=== PATIENT | male | born 1995 | race Caucasian/White ===

== ENCOUNTER 2024-07-16 14:36 | Outpatient (AMB) | payer MEDICAID, SELFPAY ==
--- NOTE | 2024-07-16 14:42 | AM.OFFWIN_ITS ---
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 Patient is concerned about possible ear infection. He states the pain is located mostly in the external ear canal. He denies any recent swimming but states that he has been shoveling snow outside a lot and might have gotten water stuck in his ear. He denies any otorrhea. He denies any fevers or chills. He denies any nasal congestion, rhinorrhea, or sore throat. He is otherwise feeling well. Review of Systems Const All systems reviewed & are unremarkable except as noted in HPI and below Reports no additional complaints Eyes Reports no additional complaints ENT Reports no additional complaints Card Reports no additional complaints Resp Reports no additional complaints GI Reports no additional complaints Reports no additional complaints Musc Reports no additional complaints Skin/Breast Reports system reviewed and no additional complaints, except as documented Neuro Reports no additional complaints Psych Reports no additional complaints Endo Reports no additional complaints Edward/Lymph Reports no additional complaints Aller/Immun Reports no additional complaints Physical Exam Vital Signs: Last Vital Signs Temp 98.8 F 07/16/24 14:43 Pulse 84 07/16/24 14:43 Resp 15 07/16/24 14:43 BP 110/78 07/16/24 14:43 Pulse Ox 96 07/16/24 14:43 Oxygen Delivery Method Room Air 07/16/24 14:43 BMI result Body Mass Index 25.7 Const Other: Vital signs reviewed. Constitutional: Non-toxic appearing. No acute distress. Well-developed and well-nourished. HEENT: Normocephalic and atraumatic. The left external auditory canal is erythematous and edematous. The left tympanic membrane is intact without evidence of rupture. The right external auditory canal and tympanic membrane are within normal limits. Skin: Warm and dry. No rashes or lesions noted. Neck: Full and painless range of motion. No cervical lymphadenopathy. Cardio: Regular rate. No lower extremity edema. Pulmonary: No respiratory distress. No accessory muscle usage. Musculoskeletal: Normal range of motion in joints throughout the body. No deformity or other signs of injury. Neuro: Alert and oriented x4. Cranial nerves 2-12 grossly intact. No focal deficits appreciated. Psych: Normal mood and affect. Assessment & Plan Assessment & Plan (1) Otitis externa: Code(s): H60.90 - Unspecified otitis externa, unspecified ear Qualifiers: Otitis externa type: swimmer's ear Chronicity: acute Laterality: left Qualified Code(s): H60.332 - Swimmer's ear, left ear Plan: This is a 28-year-old male who presented to the walk-in clinic complaining of left ear pain. On physical examination, the left external auditory canal is erythematous and edematous in the left tympanic membrane is intact without evidence of rupture. History and physical most consistent with otitis externa. Patient was given a prescription for neomycin/polymyxin/hydrocortisone ear drops. He was advised to proceed directly to the emergency room if he were to develop any otorrhea, hearing loss, or worsening pain. Patient verbalizes understanding and he is in agreement with the plan. Medications: New rpzjsbym-urgpuoybj-GY 3.5-10,000-1 mg/mL-unit/mL-% 4 drps otic (ear) left Q8H 10 mL 0RF 10 days Coding Level of Care Code New Pt Level 3 (30361) Diagnoses Acute swimmer's ear of left side H60.332 Otitis externa type: swimmer's ear Chronicity: acute Laterality: left
[2024-07-16 14:43] VITALS: BP 110/78; PULSE 84; RESP 15; TEMP 37.1; O2SAT 96; BMI 25.7
--- OUTSIDE RECORDS SUMMARY | 2024-07-16 14:54 | XMS_ITS | Clinical Summary ---
Author Organization [employer] Address [address] [facility] [address] [place] [address] Care Team Providers Care Security Agent Name Role Phone Unavailable Primary Care Provider Unavailabl e Encounters Date Type Department Care Team Description 06/09/2024 Telephone [facility] [address] [place] [address] Jovani Stewart MD New patient appt. from Last 3 Months Social History Tobacco Use Types Packs/Day Years Used Date Smoking Tobacco: Never Assessed Sex and Gender Information Value Date Recorded Sex Assigned at Male 11/21/2023 10:42 AM EDT Legal Sex Male 10:42 AM EDT Gender Identity Male 11/21/2023 10:42 AM EDT Sexual Orientation Not on file Plan of Treatment Health Maintenance Due Date Last Done Comments Depression Screening 1996 HIV Screening 1996 SDOH Screening 1996 Alcohol/Substance Use Screening 2008 Tobacco Screening 2008 Family Planning (PISQ) 11/13/2011 Hepatitis C Screening 2014 DTaP/Tdap/Td Vaccines (1 - Tdap) 11/13/2015 Hepatitis B Vaccines (1 of 3 - 19+ 3-dose series) 11/13/2015 COVID-19 Vaccine ( - 2023-2 5 season) 2024 Influenza Vaccine (#1) 2024 Zoster Vaccines (1 of 2) 2046 RSV Patients and Pa tients Aged 60 years or older (1 - 1-dose 75+ series) 11/13/2071 HIB Vaccines Aged Out No longer eligi ble based on patient's age to complete this topic HPV Vaccines Aged Out No longer eligi ble based on patient's age to complete this topic Hepatitis A Vaccines Aged Out No long er eligible based on patient's age to complete this topic IPV Vaccines Aged Out No longer eligi ble based on patient's age to complete this topic Meningococcal Vaccine Aged Out No sharmila marjan eligible based on patient's age to complete this topic Pneumococcal Vaccine: Pediat rics (0 to 5 Years) and At-Risk Patients (6 to 49) Years) Aged Out No longer eligible b ased on patient's age to complete this topic RSV under 20 months Aged Out No longe r eligible based on patient's age to complete this topic Rotavirus Vaccines Aged Out No longer eligible based on patient's age to complete this topic [place] [address] [place] [address] C3
--- OUTSIDE RECORDS SUMMARY | 2024-07-16 14:54 | XMS_ITS | Encounter Summary ---
Author Organization [facility] Address [address] [place] [phone] Phone Care Team Providers Care Clerk Analyst Name Role Phone Unavailable Primary Care Provider Unavailabl e Encounter Details Date Type Department Care Team (Late st Contact Info) Description 02/15/2013 Documentation [facility] Family Medicine [facility] [place] [address] Family Medicine, Physician [facility] [place] [address] Social History Tobacco Use Types Packs/Day Years Used Date Smoking Tobacco: Never Assessed Sex and Gender Information Value Date Recorded Sex Assigned at Not on file Legal Sex Male 4:55 PM EDT Gender Identity Not on file Sexual Orientation Not on file documented as of this encounter Plan of Treatment Not on file documented as of this encounter Visit Diagnoses Not on filedocumented in this encounter
--- OUTSIDE RECORDS SUMMARY | 2024-07-16 14:54 | XMS_ITS | Encounter Summary ---
Author Organization [facility] Address [address] [place] [phone] Phone Care Team Providers Care Sinker Puller Name Role Phone Unavailable Primary Care Provider Unavailabl e Encounter Details Date Type Department Care Team (Late st Contact Info) Description 02/27/2015 Documentation [facility] Family [facility] [place] [address] Family Medicine, Phys[place] [facility] [place] [address] Social History Tobacco Use Types Packs/Day Years [...]
--- OUTSIDE RECORDS SUMMARY | 2024-07-16 14:54 | XMS_ITS | Clinical Summary ---
Author Organization [facility] Address [address] [place] [phone] Phone Care Team Providers Care Saturator Name Role Phone Unavailable Primary Care Provider Unavailabl e Allergies No known active allergies Medications No known medications Active Problems Problem Noted Date Diagnosed Date Seasonal allergic rhinitis 08/10/2009 Immunizations Immunization Administration Dates Next Due DTaP 5 11/17/2000, 8,05/13/1997,03/14,01/17/1997 H1N1 03/22/2009 HPV, Quadrivalent 06/17/2012,02/05/2012,12/03/19 12 Hep A, ped/adol 02/21/2014,11/02/2010 Hep B, ped/adol 05/13/1997,1996,1996 Hib (PRP-T) 11/14/1997, 7,03/14/1997,01/17 IPV 11/14/1997,03/04/1997,01/17/1997 Influenza Split 02/05/2012 Influenza, injectable, quadr ivalent, preservative free 04/01/2018,03/26/2017,03/01/2016 Influenza, injectable, trivalent 05/11/2009 Influenza, intranasal, quadrivalent 02/20/2015,0 02/21/2014,02/16/2013 Influenza, intranasal, trivalent 03/12/2011,03/27 MMR 11/17/2000,02/17/1998 Meningococcal Conj (Menactra) MCV4P 02/21/2014,0 07/28/2008 OPV 11/17/2000 Td (adult) (MBL), 2 Lf tetan us toxoid, PF, adsorbed 12/04/2018 Tdap 07/28/2008 Varicella 11/03/2007,11/14/1997 Family History Medical History Relation Name Comments No Known Problems Brother shahnaz No Known Problems Father audi Hypertension Mother diya Heart disease (Premature) Other 1 Hyperlipidemia Other 1 Obesity Other 1 Relation Name Status Comments Brother shahnaz Alive Brother: Alive and well Father audi Alive Father: Alive a nd well Mother diya Alive Mother: Hyperte nsion Other 1 Other 2 Family history of Obesity, Family history of *Heart Disease, Family history of Hyperlipidemia, Family history of Cancer, unknown Paternal Grandfather Paterna l grandfather: Cancer - Paternal Grandmother Alive Paterna l grandmother: Alive and well Social History Tobacco Use Types Packs/Day Years Used Date Smoking Tobacco: Former Smokeless Tobacco: Current Comments:Never smoker Alcohol Use Standard Drinks/Week Comments Yes 0 (1 standard drink = 0.6 oz pur e alcohol) occ Hunger/Food Answer Date Recorded No 06/13/2018 Stable Housing Answer Date Recorded 0 06/13/2018 Transportation Concerns Answer Date Rec orded No 06/13/2018 Hazards in Home Answer Date Recorded No 06/13/2018 Financing Utilities Answer Date Recorde d No 06/13/2018 Safety at Home Answer Date Recorded No 06/13/2018 Outside Support Answer Date Recorded No 06/13/2018 Understanding Health Concerns Answer Da te Recorded No 06/13/2018 Financing Health Concerns Answer Date R ecorded No 06/13/2018 Missing School or Work Answer Date Kota rded No 06/13/2018 Sex and Gender Information Value Date Recorded Sex Assigned at Not on file Legal Sex Male 4:55 PM EDT Gender Identity Not on file Sexual Orientation Not on file Last Filed Vital Signs Vital Sign Reading Time Taken Comments Blood Pressure 123/67 04/01/2018 3:35 PM EST Pulse 93 04/01/2018 3:35 PM EST Temperature 36.7 ??C (98.1 ??F) 04/01/2018 3:35 PM ES T Respiratory Rate - - Oxygen Saturation - - Inhaled Oxygen Concentration - - Weight 72.6 kg (160 lb) 04/01/2018 3:35 PM EST Height 179.7 cm (5' 10.75 ) 04/01/2018 3:[address] Body Mass Index 22.47 04/01/2018 3:35 PM EST Plan of Treatment Health Maintenance Due Date Last Done Comments Influenza Vaccines (#1) 2023 04/01/20 18, 03/26/2017, 03/01/2016, Additional history exists COVID-19 Vaccine (2023-25 season) 2024 DTaP,Tdap,and Td Vaccines (8 - Td or Tdap) 12/04/2028 12/04/2018, 07/28/2008, 11/17/2000, Additional history exists Hepatitis B Vaccines Completed 05/13/1997, 1996, 1996 HIB Vaccines Completed 11/14/1997, 04/25, 03/14/1997, Additional history exists IPV Vaccines Completed 11/17/2000, 10/25, 03/04/1997, Additional history exists MMR Vaccines Completed 11/17/2000, 02/17/1998 Varicella Vaccines Completed 11/03/2007, 11/14/1997 HPV Vaccines Completed 06/17/2012, 01/24, 12/03/2011 Hepatitis A Vaccines Completed 02/21/2014, 11/03/19 11 Meningococcal Vaccine Completed 02/21/2014, 009 Men B Vaccine Aged Out No longer elig ible based on patient's age to complete this topic Pneumococcal Vaccine Aged Out No long er eligible based on patient's age to complete this topic Insurance [facility] NON PCC
--- OUTSIDE RECORDS SUMMARY | 2024-07-16 14:55 | XMS_ITS | Encounter Summary ---
Author Organization [facility] Address [address] [place] [phone] Phone Care Team Providers Care Emergency Department Clinician Name Role Phone Unavailable Primary Care Provider Unavailabl e Encounter Details Date Type Department Care Team (Late st Contact Info) Description 01/09/2017 Conversion Encounter [facility] - [address] [phone] Social History Tobacco Use Types Packs/Day Years Used Date Smoking Tobacco: Never Comments:Never smoker Sex and Gender Information Value Date Recorded Sex Assigned at Not on file Legal Sex Male 4:55 PM EDT Gender Identity Not on file Sexual Orientation Not on file documented as of this encounter Plan of Treatment Not on file documented as of this encounter Visit Diagnoses Not on filedocumented in this encounter
== END 2024-07-16 15:12 | disposition home or self-care (01) ==
PROVIDERS: PCP Pediatrics; Visit Provider Physician Assistant Medical
DX: H60.332 Swimmer's ear, left ear (principal)

== ENCOUNTER → 2024-07-16 14:36 | Outpatient (BNVA) | payer SELFPAY | PROVIDERS: PCP Pediatrics | DX: H60.332 Swimmer's ear, left ear (principal) | CPT/HCPCS: 99202 ==

== ENCOUNTER 2024-08-10 12:20 | Outpatient (REF) | payer OTHER, SELFPAY ==
[2024-08-10 16:18] LABS: MANUAL DIFF FLAG NO
[2024-08-10 16:29] LABS: Appearance Urine Turbid; Color Urine Yellow; Glucose Urine UA Negative (Negative); Leukocyte Esterase Urine Negative (Negative); Nitrite Urine Negative (Negative); PH 5.5 (5.0-9.0); Specific Gravity - Urine >= 1.030 (1.005-1.025); Urine Blood Negative (Negative); Urine Ketones Trace mg/dL (Negative); Urine Protein Negative (Neg-Trace)
[2024-08-10 17:11] LABS: Amphetamine Screen Urine Not Detected (Not Detect); Barbiturates, Urine Not Detected (Not Detect); Benzodiazepines Screen Urine Not Detected (Not Detect); Buprenorphine Scr Not Detected (Not Detect); Cannabinoid Screen Urine Not Detected (Not Detect); Cocaine Screen Urine Not Detected (Not Detect); Fentanyl, urine Not Detected (Not Detect); Methadone Screen, Urine Not Detected (Not Detect); Opiate Screen Urine Not Detected (Not Detect); Oxycodone Screen Urine Not Detected (Not Detect); Phencyclidine Screen Urine Not Detected (Not Detect)
[2024-08-10 17:29] LABS: Alanine Aminotransferase 29 U/L (0-40); Alkaline Phosphatase 52 U/L (39-117); Anion Gap 14 (12-20); Aspartate Amino Transferase 28 U/L (5-37); Basophils Percent Auto 0.7 % (0-2); Bilirubin Total 0.3 mg/dL (0.0-1.0); Blood Urea Nitrogen 22 mg/dL (9-16); Calcium 9.9 mg/dL (8.4-10.2); Carbon Dioxide 24 mmol/L (22-29); Chloride 108 mmol/L (96-108); Cholesterol 189 mg/dL (<200); Eosinophils Absolute Auto 0.1 X10*3/uL (0.0-0.4); Eosinophils Percent Auto 1.9 % (0-4); Estimated Glomerular Filt Rate > 60; Ethanol < 10 mg/dL; Glucose Fasting 75 mg/dL (60-99); HDL Cholesterol 48 mg/dL (>40); Hematocrit 43.5 % (42.0-52.0); Hemoglobin 15.1 g/dl (14.0-18.0); Imm Gran Abs Auto 0.02 X10*3/uL (0.00-0.03); Imm Gran Pct Auto 0.4 % (0.0-0.4); LDL Cholesterol Calculated 116 mg/dL (<100); Lymphocytes Absolute Auto 1.7 X10*3/uL (1.2-4.9); Mean Corpuscular HGB Conc 34.7 g/dl (31.0-36.0); Mean Corpuscular Hemoglobin 29.4 pg (27.0-33.0); Mean Corpuscular Volume 84.6 fL (80.0-98.0); Mean Platelet Volume 9.5 fL (9.4-12.4); Monocytes Absolute Auto 0.6 X10*3/uL (0.1-1.2); Monocytes Percent Auto 10.8 % (2-11); Neutrophils Percent Auto 55.2 % (45-73); Platelet Count 258 X10*3/uL (160-400); Red Blood Count 5.14 X10*6/uL (4.60-5.80); Red Cell Distribution Width 12.2 % (11.0-16.0); Sodium 142 mmol/L (135-145); Total Protein 8.6 g/dL (6.5-8.0); Triglycerides 125 mg/dL (<150); White Blood Count 5.4 X10*3/uL (4.8-10.8)
[2024-08-10 17:35] LABS: Vitamin B12 343 pg/mL (200-900)
[2024-08-10 17:44] LABS: TSH reflex Free T4 1.29 uIU/mL (0.32-4.0)
[2024-08-11 08:31] LABS: HBS Num1 0.53 mIU/mL (0-7.99); HIV AB/AG Nonreactive (Nonreactive); HIV Num 1 0.07 S/CO (0.00-0.99); ~HepC Num1 0.11 S/CO (0.00-0.79); ~Hepatitis B Surface Antibody NONREACTIVE (Nonreactive); ~Hepatitis C Antibody Nonreactive (Nonreactive)
[2024-08-11 08:50] LABS: Syphilis Screen Nonreactive (Nonreactive)
[2024-08-11 22:48] LABS: Herpes Simplex Type 1 IgG <0.90 index; Herpes Simplex Type 2 IgG <0.90 index
[2024-08-14 16:09] LABS: Vitamin D 25-OH, D2 <4 ng/mL; Vitamin D 25-OH, D3 18 ng/mL; Vitamin D 25-OH, Total 18 ng/mL (30-100)
== END 2024-08-10 12:21 | disposition home or self-care (01) ==
LOC: HO.HMGCLDS 12:20
PROVIDERS: PCP Internal Medicine; Visit Provider Internal Medicine
DX: Z00.01 Encounter for general adult medical examination with abnormal findings (principal); F10.11 Alcohol abuse, in remission; L28.2 Other prurigo; Z11.3 Encounter for screening for infections with a predominantly sexual mode of transmission
CPT/HCPCS: 80053; 80061; 80307; 81003; 82306; 82607; 84443; 85025; 86695; 86696; 86706; 86780; 86803; 87389; 96127; 99212; 99385

== ENCOUNTER 2024-08-10 12:20 | Outpatient (AMB) | payer OTHER, SELFPAY ==
[2024-08-10 12:25] VITALS: BP 122/82; PULSE 87; TEMP 36.8; O2SAT 97; BMI 26.3
--- NOTE | 2024-08-10 12:25 | A.OFFPC_ITS ---
Vital Signs 08/10/24 12:25 Height 5 ft 11 in Weight 188 lb 4 oz BMI 26.3 BP 122/82 Blood Pressure Location Rt brachial Position Sitting Pulse 87 Pulse Source Pulse Oximeter Temp 98.2 F Temp Source Oral Pulse Oximetry (%) 97 Oxygen Delivery Method Room Air Intake Visit Reasons: Est Care, requesting PE Allergies No Known Allergies Allergy (Unverified 07/16/24 14:45) Medication List - Last Reconciled 08/10/24 by Dorita Tellez MD No Known Home Meds Tobacco use date assessed: 08/10/24 Dental Screening Dental Screen Date: 08/10/24 Did you have a dental visit in the last 12 months?: Yes Did you have a dental problem in the last 6 months where you did not have access to dental care?: No Was dental information given to patient?: Patient has dentist HPI Est Care, requesting PE HPI Details New patient visit History of alcohol use disorder and inquiry regarding a persistent skin lesion. - The patient is a 28-year-old male pres enting with concerns of alcohol monitoring due to a history of binge drinking and compliance with a probationary alcohol education program. - Binge drinking pattern began post-rela tionship breakup two and a half years ago, evolving to daily consumption of at least a pint of whiskey. - Reports cessation of alcohol intake be fore the most recent New Year. - Associated substance use history inclu adama episodic cocaine use linked with alcohol consumption, and break-up with significant other - Participates in the [facility] alcohol program under probationary requirements. - Reports a chronic skin lesion on the r ight leg, originating from a traumatic event approximately two years ago. The lesion remains itchy and unresolved. Health Maintenance - Discussed compliance with probationary alcohol education program with ongoing monitoring. - Recommended blood test for alcohol lev el as part of the monitoring process. - Advised initiation of topical treatmen t using hydrocortisone cream for chronic skin lesion. - Reviewed patient's last tetanus booste r from 2008, confirming current status for vaccination. 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 - Holds a bachelor's degree in graphic a rts with an interest in pursuing nursing. - Lives with and cares for a large Mayi siegel. - Previously engaged in binge drinking a nd drug use post-breakup. Problem List - Alcohol Use Disorder, in remission - Chronic Unhealed Skin Lesion on Right Leg - History of Cocaine Use, associated wit h alcohol consumption, and emotional turmoil [facility] En[facility] Patient Instructions - Apply prescribed hydrocortisone cream at night to the affected skin area for two weeks or until symptoms improve, reassess if symptoms recur. - Comply with alcohol monitoring require ments as part of probationary program, abstain from alcohol consumption. - Fast for 10 hours before alcohol level blood test, attend lab next door for testing without needing an appointment. - Keep communication open with mental [facility] provider and attend scheduled sessions. - Contact clinic with any additional con cerns or symptoms. Review of Systems - General: No fever no chills - Neurological: No headaches no dizzin ess - Ear nose throat: No sore throat no hearing difficulty no ear pain - Cardiovascular: No syncope, no chest pain, no palpitations - Gastrointestinal: No nausea vomiting or diarrhea - Endocrine: No polyuria polydipsia no heat intolerance - Genitourinary: No dysuria - Skin: No new complaints Physical Exam General: Cooperative, healthy appearing, comfortable, no acute distress Orientation: Patient oriented x3 Limitations: None Head: Normal to inspection Ears: Within normal limit visually Nose: Normal external nose present Face and sinus: Normal facial exam Eyes: Appearance normal, extraocular movement intact pupils reactive Neck: Normal visual inspection and supple Respiratory: Normal respiratory effort and able to speak in complete sentences. Clear to auscultation, no stridor Cardiovascular: S1 and S2 GI: Normal to inspection. Soft to palpation and nontender Skin: Turgor normal, no acute findings, persistent itchy rash on the right leg anteriorly Neuro: Patient oriented x3, motor sensory intact, balance intact, tandem pass Extremities: Normal to inspection [facility] Social History Housing: House Patient Tobacco Use Status: Never used Tobacco e-Cigarette/Vaping Use: Currently Using service: No Current occupational status: employed Cognitive needs: No Hearing needs: No Vision needs: No Questionnaire PHQ-9 Over the last 2 weeks, how often have you been bothered by any of the following problems? 1. Little interest or pleasure in doing things: more than half the days 2. Feeling down, depressed, or hopeless: several days 3. Trouble falling or staying asleep, or sleeping too much: several days 4. Feeling tired or having little energy: several days 5. Poor appetite or overeating: several days 6. Feeling bad about yourself - or that you are a failure or have let yourself or your family down: several days 7. Trouble concentrating on things, such as reading the newspaper or watching television: not at all 8. Moving or speaking so slowly that other people could have noticed. Or the opposite - being so fidgety or restless that you have been moving around a lot more than usual: not at all 9. Thoughts that you would be better off or of hurting yourself in some way: not at all Total score: 7 Depression Screening Interpretation: Negative Depression Screening Done: Yes 25715 - PHQ-9 Billing: Yes Source: Developed by Drs. Abilio Madison, Darlene Solano, Pedro Macdonald and colleagues, with an educational bhumi from [employer]. Thrive Questionnaire Date Thrive assessed: 08/05/24 I am a: Patient What is your living situation today?: I have a steady place to live Within the past 12 months, did the food you bought not last and you didn't have the money to get more?: Sometimes True Within the past 12 months, did you worry whether your food would run out before you got money to buy more?: Sometimes True Do you have trouble paying for medicines?: No Do you have trouble getting transportation to medical appointments?: No Do you have trouble paying your heating and electricity bill?: Yes Do you have trouble taking care of your child, family member or friend?: I choose not to answer this question Do you have trouble with day-to-day activities such as bathing, preparing meals, shopping, managing finances, etc.?: Yes Are you currently unemployed and looking for a job?: I choose not to answer this question Are you interested in more education?: Yes Please select the resources that you would like help with: Job search/training and Education Currently or been in a relationship where the following occur: No concerns reported THRIVE Score: 3 AUDIT C Alcohol Use Questionnaire (AUDIT-C) 1. How often do you have a drink containing alcohol?: Never 2. How many drinks containing alcohol do you have on a typical day when you are drinking?: 7 to 9 3. How often do you have six or more drinks on one occasion?: Never Total Score: 3 Score Reviewed/Action Taken: Yes SHANON-7 AMB Questionnaire SHANON-7 Date SHANON - 7 assessed: 08/10/24 Feeling nervous, anxious, or on edge: 1 = Several days Not being able to stop or control worryin = Several days Worrying too much about different things: 1 = Several days Trouble relaxin = Several days Being so restless that it is hard to sit still: 0 = Not at all Becoming easily annoyed or irritable: 0 = Not at all Feeling afraid as if something awful might happen: 1 = Several days Total SHANON-7 score (0-4 normal; 5-9 mild; 10-14 moderate; 15-21 severe): 5 Source: Developed by Drs. Abilio Madison, Darlene Solano, Pedro Macdonald and colleagues, with an educational bhumi from [employer]. SHANON-7 Assessment Billing SHANON-7 Assessment Tool: SHANON-7 Assessment 22463 Physical exam (Primary Care) Vital Signs: Last Vital Signs Temp 98.2 F 08/10/24 12:25 Pulse 87 08/10/24 12:25 BP 122/82 08/10/24 12:25 Pulse Ox 97 08/10/24 12:25 Oxygen Delivery Method Room Air 08/10/24 12:25 BMI result Body Mass Index 26.3 Tobacco/Smoking Status: Tobacco use Status Tobacco use date assessed 08/10/24 08/10/24 12:31 Patient Tobacco Use Status Never used Tobacco 08/10/24 12:31 e-Cigarette/Vaping Use Currently Using 08/10/24 12:31 PHQ-9: PHQ-9 Score PHQ-9: Total score 7 08/10/24 13:06 Depression Screening Interpretation: Negative Thrive Assessment: Date of Thrive Assessment Date Thrive assessed 08/05/24 08/10/24 12:31 Currently or been in a relationship where the following occur: No concerns reported Coding Level of Care Code Est Pt Level 3 (26658) New Pt Prev Care 18-39yr(96461 Diagnoses Encounter for general adult medical examination with abnormal findings Z00.01 History of alcohol abuse F10.11 Screen for STD (sexually transmitted disease) Z11.3 Pruritic rash L28.2 Additional Codes SHANON-7 Assessment Billing - SHANON-7 Assessment Tool: SHANON-7 Assessment 11624 ([id number]) PHQ-9 - 19499 - PHQ-9 Billing: Yes ([id number]) Assessment & Plan Assessment & Plan (1) Encounter for general adult medical examination with abnormal findings: Code(s): Z00.01 - Encounter for general adult medical examination with abnormal findings Category: Medical (2) History of alcohol abuse: Code(s): F10.11 - Alcohol abuse, in remission Category: Medical (3) Screen for STD (sexually transmitted disease): Code(s): Z11.3 - Encounter for screening for infections with a predominantly sexual mode of transmission Category: Medical (4) Pruritic rash: Code(s): L28.2 - Other prurigo Category: Medical Plan New patient visit History of alcohol use disorder and inquiry regarding a persistent skin lesion. - The patient is a 28-year-old male presenting with concerns of alcohol monitoring due to a history of binge drinking and compliance with a probationary alcohol education program. - Binge drinking pattern began post-relationship breakup two and a half years ago, evolving to daily consumption of at least a pint of whiskey. - Reports cessation of alcohol intake before the most recent New Year. - Associated substance use history includes episodic cocaine use linked with alcohol consumption, and break-up with significant other - Participates in the [facility] alcohol program under probationary requirements. - Reports a chronic skin lesion on the right leg, originating from a traumatic event approximately two years ago. The lesion remains itchy and unresolved. Health Maintenance - Discussed compliance with probationary alcohol education program with ongoing monitoring. - Recommended blood test for alcohol level as part of the monitoring process. - Advised initiation of topical treatment using hydrocortisone cream for chronic skin lesion. - Reviewed patient's last tetanus booster from 2008, confirming current status for vaccination. 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 - Holds a bachelor's degree in [employer] with an interest in pursuing nursing. - Lives with and cares for a large [place]. - Previously engaged in binge drinking and drug use post-breakup. Problem List - Alcohol Use Disorder, in remission - Chronic Unhealed Skin Lesion on Right Leg - History of Cocaine Use, associated with alcohol consumption, and emotional turmoil - Probationary Alcohol Education Program Enrollment Patient Instructions - Apply prescribed hydrocortisone cream at night to the affected skin area for two weeks or until symptoms improve, reassess if symptoms recur. - Comply with alcohol monitoring requirements as part of probationary program, abstain from alcohol consumption. - Fast for 10 hours before alcohol level blood test, attend lab next door for testing without needing an appointment. - Keep communication open with mental health provider and attend scheduled sessions. - Contact clinic with any additional concerns or symptoms. - patient would like to be screened for STDs as well Orders: Orders Comprehensive [place]. Panel Fast Today F10.11 - Alcohol abuse, in remission, L28.2 - Other prurigo, Z00.01 - Encounter for general adult medical examination with abnormal findings, Z11.3 - Encounter for screening for infections with a predominantly sexual mode of transmission Ethanol Today F10.11 - Alcohol abuse, in remission, L28.2 - Other prurigo, Z00.01 - Encounter for general adult medical examination with abnormal findings, Z11.3 - Encounter for screening for infections with a predominantly sexual mode of transmission Herpes Simplex Virus Ab IgG Today F10.11 - Alcohol abuse, in remission, L28.2 - Other prurigo, Z00.01 - Encounter for general adult medical examination with a bnormal findings, Z11.3 - Encounter for screening for infections with a predominantly sexual mode of transmission Hepatitis C Antibody Today F10.11 - Alcohol abuse, in remission, L28.2 - Other prurigo, Z00.01 - Encounter for general adult medical examination with abnormal findings, Z11.3 - Encounter for screening for infections with a predominantly sexual mode of transmission Complete Blood Count Auto Diff Today F10.11 - Alcohol abuse, in remission, L28.2 - Other prurigo, Z00.01 - Encounter for general adult medical examination with abnormal findings, Z11.3 - Encounter for screening for infections with a predominantly sexual mode of transmission Lipid Panel Today F10.11 - Alcohol abuse, in remission, L28.2 - Other prurigo, Z00.01 - Encounter for general adult medical examination with abnormal findings, Z11.3 - Encounter for screening for infections with a predominantly sexual mode of transmission Vitamin D 25-OH (D2 and D3) Today F10.11 - Alcohol abuse, in remission, L28.2 - Other prurigo, Z00.01 - Encounter for general adult medical examination with abnormal findings, Z11.3 - Encounter for screening for infections with a predominantly sexual mode of transmission Vitamin B12 Today F10.11 - Alcohol abuse, in remission, L28.2 - Other prurigo, Z00.01 - Encounter for general adult medical examination with abnormal findings, Z11.3 - Encounter for screening for infections with a predominantly sexual mode of transmission UA CC w/rflx Micro + Cult Today F10.11 - Alcohol abuse, in remission, L28.2 - Other prurigo, Z00.01 - Encounter for general adult medical examination with abnormal findings, Z11.3 - Encounter for screening for infections with a predominantly sexual mode of transmission TSH reflex Free T4 Today F10.11 - Alcohol abuse, in remission, L28.2 - Other prurigo, Z00.01 - Encounter for general adult medical examination with abnormal findings, Z11.3 - Encounter for screening for infections with a predominantly sexual mode of transmission Drug Screen Urine Today F10.11 - Alcohol abuse, in remission, L28.2 - Other prurigo, Z00.01 - Encounter for general adult medical examination with abnormal findings, Z11.3 - Encounter for screening for infections with a predominantly sexual mode of transmission HIV Ab/Ag Today F10.11 - Alcohol abuse, in remission, L28.2 - Other prurigo, Z00.01 - Encounter for general adult medical examination with abnormal findings, Z11.3 - Encounter for screening for infections with a predominantly sexual mode of transmission Hepatitis B Surface Antibody Today F10.11 - Alcohol abuse, in remission, L28.2 - Other prurigo, Z00.01 - Encounter for general adult medical examination with abnormal findings, Z11.3 - Encounter for screening for infections with a predominantly sexual mode of transmission Syphilis Screen Today F10.11 - Alcohol abuse, in remission, L28.2 - Other prurigo, Z00.01 - Encounter for general adult medical examination with abnormal findings, Z11.3 - Encounter for screening for infections with a predominantly sexual mode of transmission Medications: New clobetasol 0.05% 1 appl topical BEDTIME 60 grams 0RF
== END 2024-08-10 13:02 | disposition home or self-care (01) ==
LOC: HO.HMCC 12:21
PROVIDERS: PCP Pediatrics; Visit Provider Internal Medicine
DX: Z00.01 Encounter for general adult medical examination with abnormal findings (principal); F10.11 Alcohol abuse, in remission; Z11.3 Encounter for screening for infections with a predominantly sexual mode of transmission; L28.2 Other prurigo

== ENCOUNTER 2025-02-05 13:57 | Emergency (ER) | payer OTHER, SELFPAY ==
--- NOTE | ~2025-02-05 | XR_ITS ---
CLINICAL HISTORY: pain, injury 4 view left wrist Comparison: None provided Findings: Bones intact. No dislocations. No significant loss of joint space, osteophyte, or erosions. No radiopaque foreign body. IMPRESSION: 1. No acute findings This document has been electronically signed by: Francisco Carrillo MD on 02/05/2025 14:49:38
--- NOTE | 2025-02-05 14:15 | ED_ITS ---
HPI - General Adult General Chief complaint: Wound/Laceration Stated complaint: hand PW at work Time Seen by Provider: 02/05/25 14:19 Source: patient Mode of arrival: ambulatory Limitations: no limitations History of Present Illness ED Provider: Jojo Hedrick PA-C HPI narrative: Patient is a 29 year old assigned male at with a history of alcohol abuse presenting to the emergency department today with a left wrist laceration. Patient states that he was using pruning sheers when he cut his left wrist / palm. Patient states that he had this injury while at work. Patient denies any other complaints at this time. Patient denies any numbness / tingling. Patient states that he does not know when his last tetanus shot was. Related Data Previous Rx's ?Medication ?Instructions ?Recorded clobetasol 0.05 % topical cream 1 appl topical BEDTIME #60 grams 08/10/24 amoxicillin 875 mg-potassium 1 tab PO BID 5 days #10 t abs 02/05/25 clavulanate 125 mg tablet Allergies Allergy/AdvReac Type Severity Reaction Status Date / Time No Known Allergies Allergy Verified 02/05/25 14:20 Review of Systems 2 Constitutional: Constitutional: Reports as per HPI Eyes: Eyes: Reports as per HPI ENT: Reports as per HPI Cardiovascular: Cardiovascular: Reports as per HPI Respiratory: Respiratory: Reports as per HPI Gastrointestinal: Gastrointestinal: Reports as per HPI Genitourinary: Genitourinary: Reports as per HPI Musculoskeletal: Musculoskeletal: Reports as per HPI Integumentary/Breasts: Skin/Breast: Reports as per HPI Neurologic: Reports as per HPI Psychiatric: Psychiatric: Reports as per HPI Endocrine: Endocrine: Reports as per HPI Hematologic/Lymphatic: Hematologic/Lymphatic: Reports as per HPI Allergic/Immunologic: Allergic/Immunologic: Reports as per HPI PMF Past Medical History Attestation statement: The following information was validated with the patient. Source: old records reviewed and nursing notes reviewed Social History Social History Housing: House Patient Tobacco Use Status: Never used Tobacco e-Cigarette/Vaping Use: Currently Using Advance Directives: No Advance Directives Information Provided: No Do you have a plan to hurt others: No Plan service: No Current occupational status: employed Cognitive needs: No Hearing needs: No Vision needs: No Physical Exam ED Vital Signs: Vital Signs - 24 hr 02/05/25 14:16 02/05/25 16:13 Temperature 98 F 98 F Pulse Rate 77 77 Respiratory Rate 18 18 Blood Pressure 126/60 126/60 Pulse Oximetry 98 98 Oxygen Delivery Method Room Air Room Air BMI result Body Mass Index 23.7 Const General: cooperative, no acute distress, alert and awake Nutritional Appearance: well nourished Orientation/consciousness: patient oriented x3 HENMT Head: Yes normal to inspection and Yes atraumatic Ears: hearing grossly normal bilaterally and external ears normal General nose exam: Normal external nose present, no nasal discharge noted and no epistaxis Face and sinus: Yes normal facial exam, No abrasion and No laceration Mouth: Normal oral and palatal mucosa present, no drooling and no muffled voice Eyes General: appearance normal, both eyes and all related structures Periorbital: periorbital findings normal Eyelids: Yes eyelids normal Conjunctivae: conjunctivae normal Pupils: Equal, round and reactive pupils present EOM: EOMs intact bilaterally Neck Neck: Yes normal visual inspection and Yes full ROM Resp Effort & Inspection: normal respiratory effort and able to speak in complete sentences Neuro General: patient oriented x3, moves all extremities and CN's II-XI intact bilaterally Cranial nerves: Yes Equal, round and reactive pupils present Cognition (Neuro): normal cognition Extrem General: Yes full ROM and Yes capillary refill normal Hand/finger images: 2 1. 1.5 cm Psych Appearance: grossly normal Mental Status: mental status grossly normal Affect: normal affect Attitude: cooperative Thought process: Normal thought process present Thought content: Normal thought content present Insight: Good insight present (Psych) Course Course Course Narrative: Rapid medical examination performed in triage by Jojo Hedrick PA-C. Patient is a 29 year old assigned male at presenting to the emergency department with a left hand laceration. Detailed physical exam and review of systems are deferred to the train starter. Imaging ordered. Patient placed back in the waiting room pending room availability and results. Medications Administered Discontinued Medications Generic Name Dose Route Start Last Admin Trade Name Freq PRN Reason Stop Dose Admin Diphtheria/Tetanus/Acell Pertussis 0.5 ml 02/05/25 14:18 02/05/25 15:19 Diphth,Pertus(Acell),Tet Adult 0.5 Ml Syringe IM 02/05/25 14:19 0.5 ml .ONCE ONE Administration Lidocaine HCl 10 ml 02/05/25 15:17 02/05/25 15:25 Lidocaine Hcl 1 % Mpf 5 Ml Vial SUBCUT 02/05/25 15:18 10 ml ONCE ONE Administration Procedures Laceration Left palm laceration: Site: hand Side (If applicable): left Size (cm): 1.5 Description: linear Depth: simple, single layer Local Anesthetic: lidocaine 1% Amount of anesthesia used (mL): 10 Pre-repair: wound explored, irrigated extensively and deep structures intact Skin layer closed with: other (proelene) Size (cm): 5-0 Number of sutures: 3 Technique: simple, interrupted Medical Decision Making Medical Decision Making MDM Narrative: Patient is a 29 year old assigned male at with a history of alcohol abuse presenting to the emergency department today with a left wrist laceration. Patient's physical exam was as noted in the physical exam portion of this note. Patient's left wrist x-ray showed no acute process. I explained my physical exam findings as well as all test results to the patient. I answered all questions asked by the patient. Patient was updated on his tetanus status. Patient's left palm laceration was repaired, per procedure note, without incident. Patient's PMS was present and intact prior to and after suture placement. I stressed the importance of the patient taking his medication as directed (either prescribed or as the over the counter packaging recommends). I stressed the importance of the patient following up with his primary care provider. I stressed the importance of the patient returning to the emergency department immediately if his symptoms were to worsen or if he were to develop any dizziness, shortness of breath, difficulty breathing, chest pain, blurry vision, loss of vision, nausea, vomiting, abdominal pain, fever, chills, back pain, or any other complaints. Patient verbalized agreement and understanding with this treatment plan and discharge. Differential Diagnosis Differential Diagnoses: The differential diagnosis associated with the presentation includes Laceration Abrasion Injury Admission/Observation Consideration of admission/observation: Escalation of care including admission/observation considered Patient would have been admitted to the hospital had his work up had any findings where hospital admission was appropriate and his clinical presentation warranted hospital admission. Independent Interpretation I performed an independent interpretation of an: Plain X-Ray Interpretation: My interpretation is in agreement with the radiologist's impression of this imaging study. L Reason for Exam: pain, injury CLINICAL HISTORY: pain, injury 4 view left wrist Comparison: None provided Findings: Bones intact. No dislocations. No significant loss of joint space, osteophyte, or erosions. No radiopaque foreign body. IMPRESSION: 1. No acute findings This document has been electronically signed by: Francisco Carrillo MD on 02/05/2025 14:49:38 Dictated By: Francisco Carrillo MD Signed By: Electronically signed by Francisco Carrillo MD 02/05/25 7945 Radiology Impression Discussion of test interpretation with radiology: I have reviewed the radiologist's reading. Prescription Management I considered prescription management with: Antibiotic (patient prescribed an antibiotic prophylactically secondary to mechanism of injury) Discharge Plan Discharge Clinical Impression: Laceration Patient Disposition: Home, Self-Care Instructions: Care For Your Stitches (DC), Laceration (DC) Additional Instructions: Have your sutures (3) removed in 7-10 days. Do NOT soak the affected area. Avoid public bodies of water such as lakes, pools, oceans, etc. Take your antibiotic as prescribed. Given this was a work place injury - follow up with the work connection team. IF you are prescribed home medications and/or you are taking over the counter medications at home - it is very important you continue to do so as prescribed / directed unless told otherwise. Follow up with your primary care provider. Return to the emergency department immediately if your symptoms worsen or if you develop any numbness, tingling, dizziness, shortness of breath, difficulty breathing, chest pain, blurry vision, loss of vision, nausea, vomiting, abdominal pain, fever, chills, back pain, or any other complaints. IF you are prescribed home medications and/or you are taking over the counter medications at home - it is very important you continue to do so as prescribed / directed unless told otherwise. Follow up with a primary care provider. Return to the emergency department immediately if your symptoms worsen or if you develop any numbness, tingling, dizziness, shortness of breath, difficulty breathing, chest pain, blurry vision, loss of vision, nausea, vomiting, abdominal pain, fever, chills, back pain, or any other complaints. If you do not have a primary care provider - call any of the below numbers to establish and follow up with a primary care provider. [facility] ([place]) [phone] [place] [address], [address] [facility] ([address]) [phone] [place] [address], [address] [facility], [address] [facility] ([address]) [phone] [place] [address], [address] [facility], [address] [facility] ([place]) [phone] [place] [address] 2 [facility], [address] [facility] Family Medicine [phone] [address] [facility], [address] Please see the information below about our Patient Portal. If you are not yet enrolled in the [facility] Patient Portal, you will receive an enrollment email invitation following your visit to any [facility] setting. You may also self-enroll in the Patient Portal by visiting our website: [email or web address] The following information is required to access the Patient Portal: - Your [facility] Medical Record Number - Your personal home email address (must match what is in your electronic medical record, Registration staff can assist with this) - Name - Date of Capabilities of the Patient Portal: - Message some providers - View upcoming appointments - Access your health summary, medical history, and visit history - View current conditions and allergies - View procedure and lab results - View your medications, including guidelines, side effects, and precautions - Complete pre-appointment questionnaires requested by your provider - Ready summary reports of your office visits and procedures To access the Patient Portal Mobile [employer], follow these directions: - Search [employer] in the [employer]ann Store or Figure 1 Store - Download the Roxann - Search for [facility] - Enter your login/password Prescriptions: New amoxicillin-pot clavulanate 875-125 mg tablet 1 tab PO BID 5 Days Qty: 10 0RF No Action clobetasol 0.05 % cream 1 appl topical BEDTIME Qty: 60 0RF Referrals: Work [facility] [Provider Group] Referral Note: Call to establish and follow up with the work connection. Stand Alone Forms: Work/School Release Interventions: ED Discharge Assessment Last Done: 02/05/25 16:13 Discharge Date/Time: 02/05/25 16:15 Print Language: Amharic
[2025-02-05 14:16] VITALS: BP 126/60; PULSE 77; RESP 18; TEMP 36.6; O2SAT 98; BMI 23.7
[2025-02-05] MEDS: Diphth,Pertus(ACell),Tet Adult 0.5 ML SYRINGE IM (15:19)
[2025-02-05] MEDS: Lidocaine HCl 1 % MPF 5 ML VIAL 10 ML SUBCUT (15:25)
--- OUTSIDE RECORDS SUMMARY | 2025-02-05 16:10 | XMS_ITS | Encounter Summary ---
Author Organization [facility] Address [address] [place] [address] Phone Care Team Providers Care Modeling Analyst Name Role Phone Unavailable Primary Care Provider Unavailabl e Encounter Details Date Type Department Care Team (Late st Contact Info) Description 02/15/2013 Documentation EM Family Medicine [place] [address] Family Medicine, Physician [place] [address] Social History Tobacco Use Types Packs/Day Years [...]
--- OUTSIDE RECORDS SUMMARY | 2025-02-05 16:10 | XMS_ITS | Encounter Summary ---
Author Organization [facility] Address [address] [place] [address] Phone Care Team Providers Care [facility] Representative Name Role Phone Unavailable Primary Care Provider Unavailabl e Encounter Details Date Type Department Care Team (Late st Contact Info) Description 01/09/2017 Conversion Encounter [facility] - [address] [address] Social History Tobacco Use Types Packs/Day Years [...]
--- OUTSIDE RECORDS SUMMARY | 2025-02-05 16:10 | XMS_ITS | Clinical Summary ---
Author Organization [facility] Address [address] [place] [address] Phone Care Team Providers Care Chiropractic Practice Manager Name Role Phone Unavailable Primary Care Provider [...] 93 04/01/2018 3:35 PM EST Temperature 36.7 C (98.1 F) 04/01/2018 3:35 PM EST Respiratory Rate - - Oxygen Saturation - - Inhaled Oxygen Concentration - - Weight 72.6 kg (160 lb) 04/01/2018 3:35 PM EST Height 179.7 cm (5' 10.75 ) 04/01/2018 3:[address] Body Mass Index 22.47 04/01/2018 3:35 PM EST Plan of Treatment Health Maintenance Due Date Last Done Comments Influenza Vaccines (#1) 2024 04/01/20 18, 03/26/2017, 03/01/2016, Additional history exists COVID-19 Vaccine ( season) 2025 DTaP,Tdap,and Td Vaccines (8 - Td or [...] patient's age to complete this topic Insurance [facility] NON PCC
--- OUTSIDE RECORDS SUMMARY | 2025-02-05 16:10 | XMS_ITS | Encounter Summary ---
Author Organization [facility] Address [address] [place] [address] Phone Care Team Providers Care Alarm Signal Operator Name Role Phone Unavailable Primary Care Provider Unavailabl e Encounter Details Date Type Department Care Team (Late st Contact Info) Description 02/27/2015 Documentation [facility], [facility] [place] [address] Family Medicine, Physician [facility], [facility] [place] [address] Social History Tobacco Use Types Packs/Day Years [...]
[2025-02-05 16:13] VITALS: BP 126/60; PULSE 77; RESP 18; TEMP 36.6; O2SAT 98
== END 2025-02-05 16:15 | disposition home or self-care (01) ==
PROVIDERS: Emergency Provider Emergency Medicine
DX: S61.512A Laceration without foreign body of left wrist, initial encounter (principal); W27.8XXA Contact with other nonpowered hand tool, initial encounter; Y93.9 Activity, unspecified; Y92.9 Unspecified place or not applicable; Y99.9 Unspecified external cause status
CPT/HCPCS: 12001; 73110; 90471; 90715; 99282; 99284; J2003

== ENCOUNTER → 2025-02-05 14:18 | Outpatient (BNV) | payer OTHER, SELFPAY | PROVIDERS: Visit Provider Radiology Diagnostic Radiology | DX: S61.512A Laceration without foreign body of left wrist, initial encounter (principal); Y99.0 Civilian activity done for income or pay; W27.1XXA Contact with garden tool, initial encounter | CPT/HCPCS: 73110 ==